=== PATIENT | female | born 2000 | race African-American/Black ===

== ENCOUNTER 2025-04-27 13:07 | Emergency (ER) | payer BC ==
[~2025-04-27] VITALS: Ht 160 cm; Wt 64.0 kg
[2025-04-27 13:09] VITALS: O2SAT 99
[2025-04-27 13:43] VITALS: BP 112/86; PULSE 101; RESP 16; TEMP 37; O2SAT 100
== END 2025-04-27 14:55 | disposition left against medical advice (07) ==
LOC: ER 13:54
DX: M79.605 Pain in left leg (principal)
CPT/HCPCS: 93005; 93971; 99281